=== PATIENT | female | born 1970 | race Caucasian/White ===

== ENCOUNTER 2019-08-07 08:07 | Outpatient (CLI) | payer OTHER, SELFPAY ==
--- NOTE | ~2019-08-07 | MR_ITS ---
EXAMINATION: MR lumbar spine wo con DATE: 08/07/2019 08:39 INDICATION: Radiculopathy with low back and bilateral leg pain. TECHNIQUE: Magnetic resonance imaging (MRI) of the lumbar spine was performed without intravenous con trast. Sequences included sagittal T2-weighted FSE, sagittal T2-weighted FS FSE, sagittal T1-weighted FSE, and axial T2-weighted FSE. COMPARISON: 10/07/2017 FINDINGS: Alignment is normal. Vertebral body heights are normal. Normal marrow signal. Disc desiccation, mild disc height loss and annular fissure at L4-L5. The conus medullaris terminates at T12. There is norm al signal in the caudal spinal cord. Paravertebral soft tissues are unremarkable. The following disc levels are specifically discussed: T12-L1 through L2-L3: The disc does not extend beyond the endplate margin. There is mild bilateral fa cet joint osteoarthritis. There is no neural foraminal stenosis. There is no central canal stenosis. L3-L4: The disc does not extend beyond the endplate margin. There is mild bilateral facet joint osteo arthritis. There is mild bilateral neural foraminal stenosis. There is no central canal stenosis. L4-L5: Moderate diffuse disc bulge. There is mild to moderate bilateral facet joint osteoarthritis. T here is mild to moderate left and mild right neural foraminal stenosis. There is mild to moderate willi tral canal stenosis along with narrowing of the left and right lateral recesses. L5-S1: Disc is mildly bulging. There is mild right and mild to moderate left facet joint osteoarthrit is. There is no neural foraminal stenosis. There is no central canal stenosis. IMPRESSION: 1. No significant interval change in mild to moderate spondylosis at L4-L5 and mild spondylosis in th e remainder of the lumbar spine. Reviewed, dictated and finalized at location A. IMPRESSION: 1. No significant interval change in mild to moderate spondylosis at L4-L5 and mild spondylosis in the remainder of the lumbar spine.
== END 2019-08-07 08:08 ==
PROVIDERS: Visit Provider Nurse Practitioner Adult Health
DX: M47.26 Other spondylosis with radiculopathy, lumbar region (principal)
CPT/HCPCS: 72148

== ENCOUNTER → 2021-02-19 15:00 | Outpatient (CLI) | payer OTHER, SELFPAY ==
--- NOTE | ~2021-02-19 | MR_ITS ---
EXAMINATION: MR lumbar spine wo con DATE: 02/19/2021 15:37 INDICATION: Low back pain. Lumbar radiculopathy. TECHNIQUE: Magnetic resonance imaging (MRI) of the lumbar spine was performed without intravenous con trast. Sequences included sagittal T2-weighted FSE, sagittal T2-weighted FS FSE, sagittal T1-weighted FSE, and axial T2-weighted FSE. COMPARISON: Lumbar spine MRI 08/07/2019, lumbar spine radiograph 08/12/2017 FINDINGS: Bone alignment is normal. Vertebral body heights are normal. Intervertebral disc heights ar e normal. The distal spinal cord signal intensity is normal. The conus medullaris is at T11-T12. The following disc levels are specifically discussed: L1-L2: The disc does not extend beyond the endplate margin. There is mild right and moderate left fac et joint osteoarthritis. There is no neural foraminal stenosis. There is no central canal stenosis. L2-L3: The disc does not extend beyond the endplate margin. There is mild bilateral facet joint osteo arthritis. There is no neural foraminal stenosis. There is no central canal stenosis. L3-L4: The disc is mildly bulging. There is mild bilateral facet joint osteoarthritis. There is mild bilateral neural foraminal stenosis. There is no central canal stenosis. L4-L5: The disc is bulging. There is mild bilateral facet joint osteoarthritis. There is mild bilater al neural foraminal stenosis. There is mild central canal stenosis. L5-S1: There is a central protrusion. There is moderate right and severe left facet joint osteoarthri tis. There is mild left neural foraminal stenosis. There is mild central canal stenosis. IMPRESSION: 1. Mild lumbar spondylosis, stable from 08/07/2019. Reviewed, dictated and finalized at location A. [employer]
== END ==
PROVIDERS: Visit Provider Nurse Practitioner Adult Health
DX: M47.26 Other spondylosis with radiculopathy, lumbar region (principal)
CPT/HCPCS: 72148